=== PATIENT | male | born 1965 | race Caucasian/White ===

== ENCOUNTER 2025-01-24 06:49 | Emergency (ER) | payer MEDICARE ==
[~2025-01-24] VITALS: Ht 177.8 cm; Wt 80.7 kg
[2025-01-24] MEDS: ketOROlac 15MG/ML VIAL (15MG/ML) IV ONE (07:35)
[2025-01-24] MEDS: morPHINE 2 MG SYG IVP ONE (07:50)
[2025-01-24] MEDS: ondanSETRON 4MG INJ IVP ONE (07:50)
--- NOTE | 2025-01-24 07:52 | ERN ---
General Chief Complaint: Hip Pain/Injury Stated Complaint: HIP PAIN Time Seen by MD: 06:57 Time Seen by Midlevel: 06:57 Source: patient History of Present Illness Initial Comments The patient is a 59-year-old male with a past medical history of hypertension, hyperlipidemia, and type 2 diabetes presents to the emergency department with right lumbar pain that radiates to his right hip. The pain started two days ago and has progressively worsened. Tonight he reports waking up with an increased pain. He reports taking Tylenol with no relief. He was unable to bear any weight which concerned the patient's so he decided to report to the ER for further evaluation. He does have three previous lumbar surgeries performed by neurosurgeon Dr. Shah. Allergies: Coded Allergies: codeine (Unverified Allergy, Unknown, NAUSEA, 01/24/25) Past Medical History Past Medical History: Diabetes-Type II, High Cholesterol, Hypertension Past Surgical History: None ROS Dictation CONSTITUTIONAL: Negative except for HPI HEAD/FACE: Negative except for HPI EENT: Negative except for HPI RESPIRATORY: Negative except for HPI GASTROINTESTINAL/ABDOMINAL: Negative except for HPI GENITOURINARY: Negative except for HPI MUSCULOSKELETAL: Negative except for HPI INTEGUMENTARY: Negative except for HPI NEUROLOGICAL/PSYCH: Negative except for HPI HEMATOLOGIC/LYMPHATIC: Negative except for HPI All Systems Negative, Except as noted above. 13 point review of systems assessed and all negative except for above. Physical Exam Physical Exam Dictation Vital Signs reviewed General Appearance: Alert, oriented x 3, no acute distress, well developed, nourished. Head and Face: non-traumatic. Eyes: PERRL, pink conjunctivas, eyelid no trauma, anterior chamber with arcus senilis. Ears: Pinnas intact and no signs of trauma or erythema ear canals clear and no discharge TM no erythema Nose: No discharge, no bleeding. Oropharynx: Mouth normal, tongue pink, pharynx clear,no erythema, tonsils no exudates, no abscesses noted, mucous membrane moist Neck: Supple, non-tender, no thyromegaly, no masses, no JVD, no bruits Breast:Deferred Chest:No tenderness, no crepitus, no paradoxical movement, no retractions Lungs:Clear, well-ventilated, symmetric, no rales, no wheezing, no rhonchi, no stridor, good breath sounds bilaterally Heart: Regular rate, regular rhythm, no murmur, no gallops Vascular: no peripheral edema, Abdomen: Soft, positive bowel sounds, nondistended, no guarding, nontender, no rebound, no masses no hepatomegaly, no splenomegaly, no Arora's sign, no hernias. Rectal: Deferred Genital: Deferred Neurological: Normal speech, motor function intact, sensory function intact Musculoskeletal: Neck nontender, full range of motion, back nontender, full range of motion, Extremities: nontender, full range of motion Skin: Color pink, dry, no turgor, no rash, no lacerations, no abrasions, no contusions. Lymphatic: Deferred MDM MDM: The patient is a 59-year-old male with a past medical history of hypertension, hyperlipidemia, and type 2 diabetes presents to the emergency department with right lumbar pain that radiates to his right hip. The pain started two days ago and has progressively worsened. Tonight he reports waking up with an increased pain. He reports taking Tylenol with no relief. He was unable to bear any weight which concerned the patient's so he decided to report to the ER for further evaluation. He does have three previous lumbar surgeries performed by neurosurgeon Dr. Shah. On physical examination the patient has a subjective pain to his right hip. He has full range motion of his right hip. Denies any urinary/bowel incontinence. He is neurologically intact. 5/5 strength to bilateral upper and lower extremities. CT scan of the lumbar and pelvis reveal no acute fracture or dislocation. There are chronic changes consistent with previous surgeries. Patient was given Toradol and morphine but states that medication did not help. Patient was then given Dilaudid and reports feeling improvement. Pain appears to be neuropathic in nature. Patient is ambulatory in the ER and the patient will be discharged home with close outpatient follow up with Neurosurgery. Differential diagnosis: Chronic back pain, herniated disc, strain, contusion There are no social concerns with this patient. Prescription drug management Prescriptions will include: See prescriptions Medical management and examination interpretation discussions were had by me with other qualified healthcare professionals as indicated for the patient's care. ED Course Orders Procedure Category Date Status Time Ketorolac PHA 01/24/25 Complete Tromethamine 15mg/Ml 07:00 Ct Lumbar Spine W/O CT 01/24/25 Resulted Contrast 06:58 Ct Pelvis W/O Contrast CT 01/24/25 Resulted 06:58 Morphine 2mg Syg PHA 01/24/25 Complete (Morphine 2mg Syg) 08:00 Ondansetron 4mg Inj PHA 01/24/25 Complete (Zofran 4mg Inj) 08:00 Hydromorphone 1 Mg PHA 01/24/25 Verified Inj (Dilaudid 1mg Inj 09:00 Current Medications Medications (Trade) Dose Ordered Sig/Mala Route PRN Reason Start Time Stop Time Status Last Admin Dose Admin Ketorolac Tromethamine (toRADol) 15 mg ONCE ONCE IV 01/24/25 07:00 01/24/25 07:01 DC 01/24/25 07:35 Morphine Sulfate (morPHINE 2MG SYG) 2 mg ONCE ONCE IVP 01/24/25 08:00 01/24/25 08:01 DC 01/24/25 07:50 Ondansetron HCl (zoFRAN 4MG INJ) 4 mg ONCE ONCE IVP 01/24/25 08:00 01/24/25 08:01 DC 01/24/25 07:50 Vital Signs Date Time Temp Pulse Resp B/P (MAP) Pulse Ox O2 Delivery O2 Flow Rate FiO2 01/24/25 06:50 97.9 85 19 150/73 99 Room Air DX & DISP Disposition: Discharge Departure Impression: Primary Impression: Chronic low back pain Condition: Stable Scripts Cyclobenzaprine HCl (Flexeril) 10 Mg Tab 10 MG PO BID for muscle sstiffness for 7 Days, #14 TAB 0 Refills Prov: CHANCE PEREA 01/24/25 Ketorolac Tromethamine (Ketorolac Tromethamine) 10 Mg Tablet 1 TAB PO BID for pain for 5 Days, #10 TAB 0 Refills Prov: CHANCE PEREA 01/24/25 Lidocaine (Lidocaine Pain Relief) 4 % Adh..patch 1 PATCH TP DAILY for 5 Days, #5 PATCH 0 Refills Prov: CHANCE PEREA 01/24/25 Referrals: MARIA DEL CARMEN SORTO MD (PCP) Time of Disposition: 08:53 I have reviewed the case, and I agree with, Diagnosis and Plan I performed the substantive portion of the visit. I have reviewed and personally made and approve the management plan that is documented in the note by myself or the BENI. I acknowledge for responsibility for the patient's management plan. CHANCE PEREA January 24, 2025 07:52
--- NOTE | 2025-01-24 07:56 | NUR ---
PATIENT TO CT VIA STRETCHER
--- NOTE | 2025-01-24 08:15 | NUR ---
PATIENT RETURNED FROM CT
--- NOTE | 2025-01-24 08:23 | HMCIMG ---
Exam Type: CT LUMBAR SPINE W/O CONTRAST Clinical Information: numbness/tingling previous disc herniation surgery Comparison: None Findings: The bone examination is unremarkable. No fractures or dislocations are seen. No radiopaque foreign bodies are noted. Soft tissues are preserved. IMPRESSION: Normal examination. Status post posterior decompression L2. Status post posterior fusion L2-3. Status post disc fusion L3-4, L4-5 and L5-S1. Spondylitic changes. Osteopenia. No large protrusions or extrusions. No acute fractures or dislocations. IMPRESSION: Postoperative and chronic changes as noted.
--- NOTE | 2025-01-24 08:23 | HMCIMG ---
Exam Type: CT PELVIS W/O CONTRAST Clinical Information: numbness/tingling previous disc herniation surgery Comparison: None Findings: There are postoperative changes of the lumbar spine. The bone examination is unremarkable. No fractures or dislocations are seen. No radiopaque foreign bodies are noted. Soft tissues are preserved. IMPRESSION: Normal examination.
[2025-01-24] MEDS ORDERED: CYCL10TA16 PO (08:54)
[2025-01-24] MEDS ORDERED: LIDO1ADH71 TP (08:54)
[2025-01-24] MEDS ORDERED: KETO10TA2 PO (08:54)
[2025-01-24 09:31] VITALS: BP 149/85; PULSE 70; RESP 16; TEMP 97.9; O2SAT 97
[2025-01-24] MEDS: hydroMORPHone 1 MG INJ IVP ONE (09:31)
== END 2025-01-24 09:44 | disposition home or self-care (01) ==
LOC: EDH 06:49
DX: G89.29 Other chronic pain (principal); M54.50 Low back pain, unspecified; E11.9 Type 2 diabetes mellitus without complications; E78.00 Pure hypercholesterolemia, unspecified; I10 Essential (primary) hypertension; Z88.5 Allergy status to narcotic agent; Z98.1 Arthrodesis status
CPT/HCPCS: 99285; 72131; 96374; 96375; 72192; J1885; J1171; J2270; J2405